=== PATIENT | male | born 1995 | race Hispanic/Latino ===

== ENCOUNTER 2019-02-22 20:08 | Emergency (ER) | payer SELFPAY ==
[2019-02-22] MEDS ORDERED: Adacel (T-DAP) 0.5 ML SYRINGE ONE (20:24)
[2019-02-22] MEDS ORDERED: Lidocaine 1% (PF) 30 ML VIAL ONE (20:47)
[2019-02-22] MEDS ORDERED: Bacitracin Zinc 1 Packet ONE (21:21)
== END 2019-02-22 21:30 | disposition home or self-care (01) ==
LOC: ERS 20:08
DX: S61.213A Laceration without foreign body of left middle finger without damage to nail, initial encounter (principal); F41.9 Anxiety disorder, unspecified; F90.9 Attention-deficit hyperactivity disorder, unspecified type; W26.0XXA Contact with knife, initial encounter
CPT/HCPCS: 12001; 90471; 90715; J2001